=== PATIENT | male | born 1955 | race Caucasian/White ===

== ENCOUNTER 2017-01-29 07:38 | Inpatient (IN) | payer BC ==
--- NOTE | ~2017-01-29 | HP ---
History And Physical [place] [id number] [place] [place]. [address] NAME: NELSON AUGUSTINE : 51 STATUS : ADM IN [facility]#: [id number] AGE: 61 ADM/REG DATE : 01/29/17 MR#: [id number] REPORT SERV DATE: 01/29/17 DICTATED BY: OUMAR AMEZCUA DATE: 01/29/17 REPORT STATUS : Draft TRANSCRIBED BY: MODL DATE: 01/29/17 DATE OF ADMISSION: 01/29/2017 Nelson Augustine is referred for chest discomfort with positive cardiac enzymes. CVD PHYSICIAN: Oumar Amezcua M.D. HISTORY OF PRESENT ILLNESS: Mr. Nelson Augustine is a 61-year-old male, who was cutting a some sheetrock yesterday when he developed midsternal chest discomfort. He thought it was gas and did not come to the emergency room. It did not radiate and was not associated with shortness breath, nausea, vomiting, or diaphoresis. He felt okay the rest of the day, but at about 2:30 in the morning, he awoke with chest pain 9/10, which radiated to the left arm. He was hypertensive at that time and lasted for about 20 minutes before easing. He came to emergency room and was found to have elevated troponin, but no acute changes on EKG. REVIEW OF SYSTEMS: No previous chest discomfort. No PND, VALE, lower extremity edema, palpitations, syncope, or presyncope. No fever, chills, or change in bowel habits. No skin rashes or petechiae. PAST MEDICAL HISTORY: Significant for: 1. Hypertension, poorly controlled. 2. Hyperlipidemia, not treated. We will check lipid profile and begin atorvastatin if necessary. SOCIAL HISTORY: He is . He lives in [place], [place], and works for [employer]. He has never smoked and does not drink. FAMILY HISTORY: Significant for father at the age of 89 and mother at the age of 87. PHYSICAL EXAMINATION: VITAL SIGNS: Blood pressure is 172/92, pulse is 66, he is afebrile, resting comfortably. GENERAL: Resting comfortably, nutritional status appears adequate. EYES: PERRLA. LUNGS: No labored use of accessory muscles. Without rales or wheezes. COR: PMI is not displaced. No thrills or heaves. NL S1 and S2. No S3, murmur, click or rub. PULSES: Carotids without bruits. ABD: +BS, nontender. EXT: No cyanosis, clubbing or edema. SKIN: No petechiae. NEURO: Alert and oriented. Does not appear anxious or depressed. LABORATORY EVALUATION: EKG shows no acute changes. Troponin is mildly elevated at 0.9. Potassium is 3.5 and electrolyte protocol will be used. Renal function is adequate. CONCLUSION: At this time, new onset angina-like chest discomfort. We will begin antianginal History And Physical [address] [address] NAME: NELSON AUGUSTINE : 51 STATUS : ADM IN [facility]#: [id number] AGE: 61 ADM/REG DATE : 01/29/17 MR#: [id number] REPORT SERV DATE: 01/29/17 DICTATED BY: OUMAR AMEZCUA DATE: 01/29/17 REPORT STATUS : Draft TRANSCRIBED BY: HENRY DATE: 01/29/17 treatment including beta broderick for hypertension. Scheduled for cardiac catheterization. I have discussed the risks and benefits of the catheterization with him risks to include dye reaction, stroke, kidney failure, myocardial infarction, and cardiac dysrhythmias, not meant to be an inclusive list. He understands and agrees and all questions were answered. MAG/HENRY Oumar Amezcua M.D. / [id number] CC: Milan Rogers D.O.
[2017-01-29 06:53] LABS: BASOPHILS 0.3 %; BASOPHILS ABSOLUTE 0.02 10/3/uL (0.0-0.16); EOSINOPHILS 0.4 %; EOSINOPHILS ABSOLUTE 0.03 10/3/uL (0.0-0.53); HEMOGLOBIN 14.1 g/dL (13.6-17.8); IMMATURE GRANULOCYTES 0.3 %; IMMATURE GRANULOCYTES ABSOLUTE 0.02 10/3/uL (0.0-0.11); LYMPHOCYTES 22.2 %; LYMPHOCYTES ABSOLUTE 1.59 10/3/uL (0.67-4.30); MEAN CORPUS HGB CONC 33.6 g/dL (32.0-36.0); MEAN CORPUSCULAR HEMOGLOB 29.3 pg (26.0-34.0); MEAN CORPUSCULAR VOLUME 87.3 fL (80-100); MONOCYTES 7.1 %; MONOCYTES ABSOLUTE 0.51 10/3/uL (0.21-1.20); NEUTROPHILS 69.7 %; NEUTROPHILS ABSOLUTE 4.98 10/3/uL (2.02-8.40); PLATELET COUNT 278 10/3/uL (150-400); RBC DISTRIBUTION WIDTH 14.7 % (12.0-16.0); RED CELL COUNT 4.81 10/6/uL (4.7-6.1); WHITE BLOOD CELLS 7.2 10/3/uL (4.5-10.5)
[2017-01-29 06:57] LABS: MANUAL DIFF NO %
[2017-01-29 07:00] LABS: PARTIAL THROMBO TIME 38.4 SEC (22.5-37.2); PROTIME (NOT ORD) 13.5 SEC (12.0-14.5)
[2017-01-29 07:11] LABS: BUN (BLOOD UREA NITROGEN) 11 MG/DL (6-23); CALCIUM, SERUM 8.6 MG/DL (8.5-10.4); CHLORIDE, SERUM 103 MMOL/L (96-112); CO2 (CARBON DIOXIDE) 29 MMOL/L (24-34); CREATININE 0.96 MG/DL (0.70-1.30); GFR AFRICAN AMERICAN 97 ML/MIN (>=60); GFR NON AFRICAN AMERICAN 84 ML/MIN (>=60); GLUCOSE, SERUM 105 MG/DL (60-99); POTASSIUM, SERUM 3.5 MMOL/L (3.5-5.3); SODIUM, SERUM 139 MMOL/L (135-148)
[2017-01-29 07:12] LABS: CHEST PAIN PROFILE TAT 0 Hrs 25 Mins; TROPONIN I 0.95 NG/ML (<0.05)
[~2017-01-29 07:38] MED LIST: ACIPHEX PO; PRINZIDE1 TA1 PO
[2017-01-29] MEDS ORDERED: PRINZIDE1 TA1 PO (08:09)
[2017-01-29] MEDS ORDERED: ASAB PO (08:10)
[2017-01-29 10:15] LABS: CHOLESTEROL 211 MG/DL (< 200); HDL CHOLESTEROL 53 MG/DL (> 39); LDL CHOLESTEROL 122 MG/DL (< 130); NON-HDL CHOLESTEROL 158 MG/DL (< 160); TRIGLYCERIDE 183 MG/DL (< 150)
[2017-01-29 17:58] LABS: CK-MB 5.3 NG/ML; CKMB INDEX (NOT ORD) 3.6
[2017-01-29 22:36] LABS: ASCORBIC ACID (UR NOT ORDER) NEG (NEG); BILIRUBIN, URINE NEGATIVE (NEG); KETONE, URINE TRACE MG/DL (NEG); LEUKOCYTE ESTERASE(NOT OR NEG (NEG); WBC (NOT ORDERED) (RFLEX) 1 (0-5)
[2017-01-30 05:29] LABS: HEMATOCRIT 38.3 % (40.0-51.0); HEMOGLOBIN 12.7 g/dL (13.6-17.8)
[2017-01-30 05:46] LABS: BUN (BLOOD UREA NITROGEN) 12 MG/DL (6-23); CALCIUM, SERUM 8.3 MG/DL (8.5-10.4); CHLORIDE, SERUM 108 MMOL/L (96-112); CREATININE 0.93 MG/DL (0.70-1.30); GFR AFRICAN AMERICAN 101 ML/MIN (>=60); GFR NON AFRICAN AMERICAN 87 ML/MIN (>=60); GLUCOSE, SERUM 89 MG/DL (60-99); HDL CHOLESTEROL 51 MG/DL (> 39); POTASSIUM, SERUM 3.5 MMOL/L (3.5-5.3); SGPT(ALT) 16 U/L (5-65); SODIUM, SERUM 142 MMOL/L (135-148); TRIGLYCERIDE 129 MG/DL (< 150)
[2017-01-30 05:48] LABS: CHOL/HDL RATIO(NOT ORDER) 3.3 (0-5); CHOLESTEROL 168 MG/DL (< 200); CK-MB 4.1 NG/ML; CO2 (CARBON DIOXIDE) 23 MMOL/L (24-34); CPK 122 U/L (0-200); LDL CHOLESTEROL 92 MG/DL (< 130); NON-HDL CHOLESTEROL 117 MG/DL (< 160); TROPONIN I 1.75 NG/ML (<0.05)
[2017-01-30] MEDS ORDERED: HYDROCHLOROT12.5 MG PO (08:35)
[2017-01-30] MEDS ORDERED: PRIN20 PO (08:36)
[2017-01-30] MEDS ORDERED: TOPXL25 PO (08:38)
[2017-01-30] MEDS ORDERED: BRILINTA90 MG PO (08:39)
[2017-01-30] MEDS ORDERED: LIPITOR40 PO (08:40)
[2017-01-30] MEDS ORDERED: NITROQUICK0.4 MG SL (08:42)
== END 2017-01-30 09:45 | disposition home or self-care (01) | DRG 246 ==
LOC: ER 07:38 → 5NO 07:48 → SDC/OF 12:51 → SSU1 12:52
PROVIDERS: Internal Medicine Cardiovascular Disease; Specialist
PROC: B2151ZZ Fluoroscopy of Left Heart using Low Osmolar Contrast (ICD-10-PCS; principal; 2017-01-29)
PROC: 027235Z Dilation of Coronary Artery, Three Arteries with Two Drug-eluting Intraluminal Devices, Percutaneous Approach (ICD-10-PCS; 2017-01-29)
PROC: 027 Heart and Great Vessels, Dilation (ICD-10-PCS; 2017-01-29)
PROC: B2111ZZ Fluoroscopy of Multiple Coronary Arteries using Low Osmolar Contrast (ICD-10-PCS; 2017-01-29)
PROC: 4A023N7 Measurement of Cardiac Sampling and Pressure, Left Heart, Percutaneous Approach (ICD-10-PCS; 2017-01-29)
DX: I21.4 Non-ST elevation (NSTEMI) myocardial infarction (principal); I10 Essential (primary) hypertension; I25.10 Atherosclerotic heart disease of native coronary artery without angina pectoris; E78.5 Hyperlipidemia, unspecified; Z82.49 Family history of ischemic heart disease and other diseases of the circulatory system
CPT/HCPCS: 71010; 80048; 80061; 81001; 82550; 82553; 83735; 84460; 84484; 85014; 85018; 85025; 85610; 85730; 93005; 93458; 99152; 99153; 99285; A9270-GY; C1725; C1769; C1874; C1887; C1894; C9600; J0583; J2250; J3010; Q9967